=== PATIENT | female | born 1990 ===

== ENCOUNTER 2018-02-20 06:32 | Emergency (ER) | payer SELFPAY ==
--- NOTE | 2018-02-20 07:20 | C.PDOC ---
History Of Present Illness Patient presents to ED with complaints of one week history of headache with associated lightheadedness. She reports headache as "something squeezing my head " and feels lightheaded upon standing or quick head movements. She also complains of pressure to right ear which radiates into her neck and feels her glands are swollen but denies any sore throat or difficulty swallowing. Additionally patient reports feeling her bones achy and discomfort in lower abdomen today after urinating. Denies fever, chills, dysuria, vaginal bleeding, diarrhea, constipation, vision changes. Time Seen by Provider: 02/20/18 07:07 Chief Complaint (Nursing): Headache History Per: Patient History/Exam Limitations: no limitations Onset/Duration Of Symptoms: Days Current Symptoms Are (Timing): Still Present Past Medical History Reviewed: Historical Data, Nursing Documentation, Vital Signs Vital Signs: Last Vital Signs Temp 99.2 F 02/20/18 10:02 Pulse 88 02/20/18 10:02 Resp 16 02/20/18 10:02 BP 97/61 L 02/20/18 10:02 Pulse Ox 100 02/20/18 10:02 Family History: States: No Known Family Hx - Social History Hx Alcohol Use: No Hx Substance Use: No - Immunization History Hx Tetanus Toxoid Vaccination: No Hx Influenza Vaccination: No Hx Pneumococcal Vaccination: No Review Of Systems Constitutional: Negative for: Fever, Chills Eyes: Negative for: Vision Change ENT: Positive for: Other (+ear pressure). Negative for: Ear Discharge Cardiovascular: Positive for: Light Headedness Gastrointestinal: Negative for: Diarrhea, Constipation Genitourinary: Negative for: Dysuria, Vaginal Bleeding Musculoskeletal: Positive for: Neck Pain Neurological: Positive for: Headache Physical Exam - Physical Exam Appears: Non-toxic, No Acute Distress Skin: Normal Color, Warm, Dry, No Rash Head: Atraumatic, Normacephalic, No Tenderness, No Swelling Eye(s): bilateral: Normal Inspection, PERRL, EOMI, Other (No nystagmus) Ear(s): Bilateral: TM Dull Nose: Normal Oral Mucosa: Moist Lips: Normal Appearing Neck: Normal ROM, Supple Chest: Symmetrical Cardiovascular: Rhythm Regular, No Murmur Respiratory: Normal Breath Sounds, No Accessory Muscle Use Extremity: Normal ROM, No Deformity, No Swelling Neurological/Psych: Oriented x3, Normal Speech, Normal Cranial Nerves (II-XII intact), No Cerebellar Signs, Normal Motor, Normal Sensation Gait: Steady ED Course And Treatment O2 Sat by Pulse Oximetry: 99 (RA) Pulse Ox Interpretation: Normal - CT Scan/US Head Other Rad Studies (CT/US): Read By Radiologist, Radiology Report Reviewed CT/US Interpretation: Accession No. : [id number]. Patient Name / ID : JHOANA PAREDES / [id number]. Exam Date : 02/20/2018 08:23:36 ( Approved ). Study Comment : Sex / Age : F / 27Y. Creator : Toma Sanford. Dictator : Louie Burrell MD. Product/Device Technologist : [employer] Supervisor : Louie Burrell MD. Approver2 : Report Date : 02/20/2018 08:44:07. My Comment : . PROCEDURE: CT HEAD WITHOUT CONTRAST. HISTORY: headache. COMPARISON: None available. TECHNIQUE: Axial computed tomography images were obtained through the head/ brain without intravenous contrast. Radiation dose: Total exam DLP = 867.96 mGy-cm. This CT exam was performed using one or more of the following dose reduction techniques: Automated exposure control, adjustment of the mA and/or kV according to patient size, and/or use of iterative reconstruction technique. FINDINGS: HEMORRHAGE: No intracranial hemorrhage. BRAIN: No mass effect or edema. No atrophy or chronic microvascular ischemic changes. VENTRICLES: Unremarkable. No hydrocephalus. CALVARIUM: Unremarkable. PARANASAL SINUSES: Unremarkable as visualized. No significant inflammatory changes. MASTOID AIR CELLS: Unremarkable as visualized. No inflammatory changes. OTHER FINDINGS: None. IMPRESSION: Normal CT of the Head. No intracranial mass, hemorrhage or evidence of acute infarct. Medical Decision Making Medical Decision Making: Impression: Headache Plan: * Tylenol * Meclizine * CT head CT head: Normal CT of the Head. No intracranial mass, hemorrhage or evidence of acute infarct. On re-eval: patient states she is feeling better, she denies any dizziness or vision changes. She has no fever, neck is supple and normal neuro. Patient stable for discharge. Recommend follow up in the clinic and to take medications as prescribed. Disposition Counseled Patient/Family Regarding: Studies Performed, Diagnosis, Need For Followup, Rx Given - Disposition Referrals: [facility] [Outside] [facility]Outside[facility] Disposition: HOME/ ROUTINE Disposition Time: 09:29 Condition: GOOD Additional Instructions: Take antibiotic twice a day Take daily allergy medicine and decongestant Take pain medicine as needed Follow up in the clinic for further care Return to the emergency department at any time if symptoms persist or worsen. Lolita antibiticos dos veces al da Farmers diariamente un medicamento para la alergia y descongestionante Farmers medicamento para el dolor segn sea necesario Seguimiento en la clnica para ms cuidados Regrese al departamento de emergencia en cualquier momento si los sntomas persisten o empeoran. Prescriptions: Amoxicillin 875 mg PO BID #14 tablet Ibuprofen [Motrin] 600 mg PO Q8 #20 tab Loratadine [Claritin] 10 mg PO DAILY #30 tab Pseudoephedrine HCl [Sudafed] 30 mg PO Q8 #24 tablet Instructions: Sinus Headache (DC) Forms: [employer] (French) Print Language: CUBAN - POA Present On Arrival: None - Clinical Impression Clinical Impression: Sinusitis, Headache - Scribe Statement The provider has reviewed the documentation as recorded by the Scribe (Rocío Dietz) All medical record entries made by the Scribe were at my direction and personally dictated by me. I have reviewed the chart and agree that the record accurately reflects my personal performance of the history, physical exam, medical decision making, and the department course for this patient. I have also personally directed, reviewed, and agree with the discharge instructions and disposition.
[2018-02-20 07:49] LABS: SQUAMOUS EPITHIAL 3 /hpf (0-5); URINE BILIRUBIN NEGATIVE (NEGATIVE); URINE BLOOD NEGATIVE (NEGATIVE); URINE CLARITY Clear (Clear); URINE COLOR Straw (YELLOW); URINE GLUCOSE (UA) NORMAL (Normal); URINE LEUKOCYTE ESTERASE NEG Leu/uL (Negative); URINE PROTEIN NEGATIVE (NEGATIVE); URINE UROBILINOGEN NORMAL mg/dL (0.2-1.0)
--- NOTE | 2018-02-20 09:00 | CT ---
PROCEDURE: CT HEAD WITHOUT CONTRAST. HISTORY: headache COMPARISON: None available. TECHNIQUE: Axial computed tomography images were obtained through the head/brain without intravenous contrast. Radiation dose: Total exam DLP = 867.96 mGy-cm. This CT exam was performed using one or more of the following dose reduction techniques: Automated exposure control, adjustment of the mA and/or kV according to patient size, and/or use of iterative reconstruction technique. FINDINGS: HEMORRHAGE: No intracranial hemorrhage. BRAIN: No mass effect or edema. No atrophy or chronic microvascular ischemic changes. VENTRICLES: Unremarkable. No hydrocephalus. CALVARIUM: Unremarkable. PARANASAL SINUSES: Unremarkable as visualized. No significant inflammatory changes. MASTOID AIR CELLS: Unremarkable as visualized. No inflammatory changes. OTHER FINDINGS: None. IMPRESSION: Normal CT of the Head. No intracranial mass, hemorrhage or evidence of acute infarct.
[2018-02-20 10:02] VITALS: BP 97/61; PULSE 88; RESP 16; TEMP 99.2
[2018-02-20 15:54] VITALS: O2SAT 99
== END 2018-02-20 10:05 | disposition home or self-care (01) ==
LOC: SUPCPDRO 06:32 → C.ER 06:32
DX: J32.9 Chronic sinusitis, unspecified (principal); R51 Headache

== ENCOUNTER 2018-10-07 12:22 | Emergency (ER) | payer OTHER, SELFPAY ==
[2018-10-07 12:28] VITALS: O2SAT 100
--- NOTE | 2018-10-07 12:50 | C.PDOC ---
History Of Present Illness 28 yo female w/o significant PMHx presents to ED with complaints of left sided neck pain radiates into her left arm, chest area gradually developed for past few days. Pt admits, bodyaches, malaise. Pt reports, pain over left side of neck reproducible and worse with head rotation. Pt denies fever, chills, severe headache, dizziness, drooling, dysphagia, dyspnea, SOB, palpitation, diaphoresis, abd. pain, N/v/D, dysuria, vaginal bleeding. Ambulate to ED for evaluation, not in any apparent distress. Time Seen by Provider: 10/07/18 12:45 Chief Complaint (Nursing): Chest Pain History Per: Patient Past Medical History Reviewed: Historical Data, Nursing Documentation, Vital Signs Vital Signs: Last Vital Signs Temp 98.8 F 10/07/18 12:27 Pulse 64 10/07/18 12:27 Resp 18 10/07/18 12:27 BP 128/75 10/07/18 12:27 Pulse Ox 100 10/07/18 12:27 - Medical History PMH: No Chronic Diseases Surgical History: No Surg Hx Family History: States: No Known Family Hx Denies: MA, CAD, Diabetes - Social History Hx Tobacco Use: No Hx Alcohol Use: No Hx Substance Use: No - Immunization History Hx Tetanus Toxoid Vaccination: No Hx Influenza Vaccination: No Hx Pneumococcal Vaccination: No Review Of Systems Except As Marked, All Systems Reviewed And Found Negative. Constitutional: Positive for: Malaise. Negative for: Fever, Chills Eyes: Negative for: Vision Change ENT: Negative for: Nose Congestion, Throat Pain Cardiovascular: Positive for: Chest Pain. Negative for: Palpitations, Orthopnea, Edema, Light Headedness Respiratory: Negative for: Cough, Shortness of Breath, Wheezing Gastrointestinal: Negative for: Nausea, Vomiting, Abdominal Pain Genitourinary: Negative for: Dysuria Musculoskeletal: Positive for: Neck Pain Neurological: Negative for: Weakness, Numbness, Altered Mental Status, Dizziness Physical Exam - Physical Exam Appears: Well, Non-toxic, No Acute Distress Skin: Normal Color, Warm, Dry, No Rash Head: Atraumatic, Normacephalic Eye(s): bilateral: PERRL, EOMI Ear(s): Bilateral: Normal Nose: No Flaring, No Discharge Oral Mucosa: Moist Throat: No Exudate Neck: Normal ROM, Trachea Midline, No Midline Cervical Tenderness, No Step Off Deformity, Supple, Other (mild tenderness along left STM muscle extend down to left upper arm.) Chest: No Deformity, No Tenderness Cardiovascular: Rhythm Regular, No Murmur, No JVD, Other ((-) carotid bruits B/L) Respiratory: No Decreased Breath Sounds, No Accessory Muscle Use, No Stridor, No Wheezing Gastrointestinal/Abdominal: Bowel Sounds, Soft, No Tenderness, No Distention, No Guarding Back: No CVA Tenderness Extremity: Normal ROM, No Pedal Edema, No Deformity, No Swelling Neurological/Psych: Oriented x3, Normal Speech ED Course And Treatment - Laboratory Results Result Diagrams: 10/07/18 13:23 10/07/18 13:23 Lab Interpretation: No Acute Changes ECG: Interpreted By Me, Viewed By Me ECG Rhythm: Sinus Rhythm Interpretation Of ECG: SR@68/min, NAD, no acute T wave or ST-T changes. O2 Sat by Pulse Oximetry: 100 Pulse Ox Interpretation: Normal - Radiology CXR: Interpreted by Me, Viewed By Me, Read By Radiologist CXR Interpretation: Yes: No Acute Disease Progress Note: Pt was OBS in ED for 3 hours and reports moderate improvement in sx. on re-eval, pt is afebrile, hemodynamicaly stable. Non-toxic. neck: Supple, (-)JVD, (-) carodid bruits B/L. Lungs: CTA B/L, BS equal B/L. CVS: (+)S1S2, reg. Abd: benign, (-) guarding, (-) rebound, (-) localized tenderness. back: (-) CVA tenderness. neuorlogicaly intact. Blood work review and appears without acute abnormalities. troponin I, EKG, CXR- normal study. Pt has clinical findings c/w left sided cervical strain, chets pain r/o muscle strain. Pt advised. ref. to f/u with PMD, Card in 2-3 days for re-eval. return if any new changes. Disposition Counseled Patient/Family Regarding: Studies Performed, Diagnosis, Need For Followup, Rx Given - Disposition Referrals: [facility] [Outside] Disposition: HOME/ ROUTINE Disposition Time: 15:00 Condition: STABLE Additional Instructions: LIght duty Avoid strenous physical activity for 1 week Take pain medication as need Follow up with PMD in 2-3 days for re-evaluation. return to ED if any worsening or new changes. Prescriptions: traMADol [Ultram] 50 mg PO TID #7 tab Instructions: Chest Pain (DC) Forms: [employer] (Bangladeshi) Print Language: IRISH - Clinical Impression Clinical Impression: Chest pain
[2018-10-07] MEDS ORDERED: Sodium Chloride 0.9% 1,000 ML IV ONE (13:11)
[2018-10-07 13:29] LABS: BASO % 0.3 % (0.0-2.0); EOS % 0.1 % (0.0-4.0); HEMOGLOBIN 11.8 g/dL (11.0-16.0); LYMPH # 1.4 K/uL (1.0-4.3); LYMPH % 22.4 % (20.0-40.0); MEAN CELL VOLUME 97.8 fL (81.0-99.0); MEAN CORPUSCULAR HEMOGLOBIN 32.8 pg (27.0-31.0); MEAN CORPUSCULAR HGB CONC 33.5 g/dL (33.0-37.0); MEAN PLATELET VOLUME 9.9 fL (7.2-11.7); MONO # 0.2 K/uL (0.0-0.8); MONO % 3.2 % (0.0-10.0); NEUT # 4.7 K/uL (1.8-7.0); RBC 3.6 Mil/uL (3.80-5.20); RED CELL DISTRIBUTION WIDTH 12.3 % (11.5-14.5); WHITE BLOOD COUNT 6.3 K/uL (4.8-10.8)
[2018-10-07] MEDS ORDERED: Sodium Chloride 0.9% 1,000 ML ONE (13:31)
[2018-10-07 13:41] LABS: ALB/GLOB RATIO 1.5 (1.0-2.1); ALBUMIN 4.8 g/dL (3.5-5.0); ALT/SGPT 38 U/L (9-52); AST/SGOT 29 U/L (14-36); BLOOD UREA NITROGEN 18 mg/dL (7-17); GFR NON-AFRICAN AMERICAN > 60
[2018-10-07 13:41] LABS: HCG,QUALITATIVE URINE NEGATIVE (NEGATIVE)
[2018-10-07 13:45] LABS: SQUAMOUS EPITHIAL 1 /hpf (0-5); URINE BILIRUBIN NEGATIVE (NEGATIVE); URINE BLOOD NEGATIVE (NEGATIVE); URINE CLARITY Clear (Clear); URINE COLOR Straw (YELLOW); URINE GLUCOSE (UA) NORMAL (Normal); URINE LEUKOCYTE ESTERASE NEG Leu/uL (Negative); URINE PROTEIN NEGATIVE (NEGATIVE); URINE UROBILINOGEN NORMAL mg/dL (0.2-1.0)
[2018-10-07 14:01] LABS: INR 1.2; PROTHROMBIN TIME 12.8 SECONDS (9.7-12.2)
--- NOTE | 2018-10-07 15:32 | RAD ---
Date of service: 10/07/2018 HISTORY: chest pain COMPARISON: No prior. TECHNIQUE: Chest PA and lateral FINDINGS: LUNGS: No active pulmonary disease. PLEURA: No significant pleural effusion identified. No pneumothorax apparent. CARDIOVASCULAR: No aortic atherosclerotic calcification present. Normal cardiac size. No pulmonary vascular congestion. OSSEOUS STRUCTURES: Mild side bending versus mild levoscoliosis centered in the lower thoracic region VISUALIZED UPPER ABDOMEN: Normal. OTHER FINDINGS: None. IMPRESSION: No active disease.
[2018-10-07 16:35] VITALS: BP 106/74; PULSE 80; RESP 20; TEMP 97.6
--- NOTE | 2018-10-08 21:47 | CARD ---
APPROVED REPORT Date of service: 10/07/2018 EKG Measurement Heart [id number] <Conclusion> Normal sinus rhythm Normal ECG
== END 2018-10-07 17:06 | disposition home or self-care (01) ==
LOC: C.ER 12:22
DX: R07.9 Chest pain, unspecified (principal)
CPT/HCPCS: 71046; 80053; 81001; 84484; 84703; 85025; 85610; 85730; 93005; 96360; 99285; J7030